=== PATIENT | female | born 1995 | race Caucasian/White ===

== ENCOUNTER 2019-07-12 16:49 | Inpatient (IN) ==
[~2019-07-12 16:49] MED LIST: Methylergonovine 0.2 MG/ML AMPUL IM ONE
[2019-07-12] MEDS ORDERED: Ringers Solution, Lactated 1,000 ML IVC SCH (17:00)
[2019-07-12] MEDS ORDERED: Metoclopramide 10 MG/2 ML VIAL IVP PRN (17:00)
[2019-07-12] MEDS ORDERED: Famotidine 20 MG/2 ML VIAL IVP PRN (17:00)
[2019-07-12] MEDS ORDERED: *HR* Nalbuphine 10 MG/ML AMPUL IVP PRN (17:00)
[2019-07-12] MEDS ORDERED: Naloxone 0.4 MG/ML INJ IVP PRN (17:00)
[2019-07-12] MEDS ORDERED: Acetaminophen 325 MG TABLET PO PRN (17:38)
[2019-07-12] MEDS ORDERED: Penicillin G Potassium 5,000,000 UNIT in 0.9 % Sodium Chloride Mini Bag 100 ML IVPB ONE (17:39)
--- NOTE | 2019-07-12 17:43 | OB/GYN History & Physical ---
Date of Encounter: 07/12/19 Time of Encounter: 17:40 Assessment and Plan (1) 39 weeks gestation of Current visit: Yes Status: Acute admitted for delivery Will start IV antibiotics Patient may have Nubain or epidural when desires History of Present Illness Chief complaint: Labor HPI: Ms. Cervantes is a 24 year old female at 39w5d presents to labor and delivery from the [facility]. Patient reports her water broke at 2230 on 07/11/19. Fluid is now meconium stained fluid. Patient received IM Rocephin per the Contract Design Agent from the [facility]. Patient was brought to labor and delivery due to tachycardia and prolonged rupture of membranes. Blood type: A Negative Rubella: non-immune Hep B: pending GBS: Negative Past Med Surg Social Fam HX - Past Medical History Source: patient Medical history: no medical history Psychiatric history: no psych history - Past Surgical History Surgical History: no surgical history - Social History Smoking Status: Never smoker Smokeless Tobacco Status: No Alcohol use: none Drug use: none - Family History Father Family Member Ethnicity: Non- Living Status: Still Living Hx Family Cardiac Disorders: Yes (hypertension) Obstetrical History - Pregnancies : 1 Para: 0 Term: 0 : 0 Ab's: 0 Livin Medications and Allergies Pnv95/Ferrous Fumarate/FA [ Vitamin Tablet] 1 each PO DAILY 07/12/19 [History] Allergy/AdvReac Type Severity Reaction Status Date / Time No Known Allergies Allergy Verified 07/12/19 17:12 Review of System OB - Constitutional Constitutional ROS IM: no chills, no fever(s), no headache(s) - Cardiovascular Cardiovascular: no chest pain - Respiratory Respiratory: no cough, no dyspnea - Gastrointestinal Gastrointestinal: no constipation, no diarrhea, no heartburn, no nausea, no vomiting - Genitourinary Genitourinary: no abnormal vaginal bleeding, no urinary frequency, no urinary urgency, no vaginal odor, no vaginal pruritis Exam - Vital Signs Vital signs: Initial Vital Signs Temp Pulse Resp BP 99.5 F 104 18 134/79 07/12/19 17:01 07/12/19 17:01 07/12/19 17:01 07/12/19 17:01 - Constitutional Constitutional: well developed, well nourished, average body habitus - HEENT HEENT: Normocephaly, Mucus Membranes Moist - Neck Neck exam: full ROM, supple - Lungs Respiratory exam: CTAB - Cardiovascular Cardiovascular exam: RRR, +S1, +S2 - Abdomen Abdomen: Present: bowel sounds normal, gravid, non tender - Extremities Extremities exam: full ROM, normal inspection Deep Tendon Reflex Grade: 2+ Normal - Cervix Dilation: 7 Effacement: 100 Station: -1 - Uterus Uterus exam: Present: normal size, normal contour - Anus/Rectum Anus/Rectum: Present: normal perianal skin - Comments Comments: FHR 160 bpm moderate variability contractions irregular Results All other labs normal. - VTE Reasons for not Prescribing Prophylaxis: Treatment not Indicated - Low risk for VTE
[2019-07-12 17:49] LABS: Hematocrit 33.5 % (35.3-44.9); Hemoglobin 11.4 g/dL (11.5-15.4); Immature Granulocytes % 0.5 % (0-4); Lymphocytes # 0.5 K/mcL (0.6-4.6); Lymphocytes % 2.8 %; Mean Corpuscular Hemoglobin 29.9 pg (28.0-33.3); Mean Corpuscular Volume 87.9 fL (83.0-100.0); Mean Platelet Volume 11.3 fL (9.4-12.4); Monocytes % 5.8 %; Neutrophils # 14.9 K/mcL (1.6-8.9); Platelet Count 135 K/mcL (140-400); Red Blood Count 3.81 M/mcL (3.82-4.97); Red Cell Distribution Width 14.2 % (11.5-14.5); Segmented Neutrophils % 90.9 %; White Blood Count 16.4 K/mcL (4.3-11.1)
--- NOTE | 2019-07-12 19:55 | Event Note ---
Date of Encounter: 07/12/19 Time of Encounter: 19:53 Called in room to check patient as nursing felt patient was ready to push.. Patient was prepped and draped. Patient did push a couple of times and was unable to bring any descent. On cervical examination there was found to be in anterior lip. Contractions were approximately every 5-6 minutes. Pitocin was started. I had discussion with patient and her as well as her drafter automotive design layout about an epidural for her. They are going to consider a to allow her to relax and let the rest the cervix go away. heart rate in the 160s. Irregular contractions.
--- NOTE | 2019-07-12 22:40 | OB/GYN Procedure Note ---
Delivery - Delivery Date: 07/12/19 Provider: Dara Cortes Intrapartum events: meconium, prolonged labor- > = 20hr Delivery augmentation: pitocin Delivery monitor: external FHT, external uterine Anesthesia: local (for repair) Quantitated Blood Loss: 400 - (s) Infant A Delivery Date: 07/12/19 Infant Delivery Time: 22:02 Presentation: vertex Position: [place] Route of delivery: Gender: Female Viability: Viable Pounds: 8 Ounces: 8 at 1 minute: 2 at 5 mins: 9 Shoulder Dystocia: not encountered Specimens collected: cord blood Placenta: spontaneous, uterine exploration Cord: 3 umbilical vessels - Repair Episiotomy: none Laceration Description: Perineal - 2nd Degree (repaired with 4-0 vicryl ) - Complications Delivery complications: none - Disposition Mom disposition: stable in LDR [place] disposition: stable in LDR - Comments Comments: Called to LDR patient pushing with contractions. tachycardia was noted and Dr. Lemus was aware of EFM tracing. Patient was in lithotomy position with feet in the foot plates. I was gowned and gloved and together with Dr. Menard, PGY 1 delivered a viable female infant. No nuchal cord or shoulder dystocia was encountered. Meconium fluid was noted. was placed on maternal abdomen cord was quickly clamped and cut and was taken to the warmer by nursery staff. A cord segment was cut and cord gases were drawn. Cord blood was also collected. The placenta delivered spontaneously and visually intact. A marginal cord insertion was noted. No odor was noted. A 2nd degree laceration was noted and repaired with 3-0 vicryl. 1% lidocaine was used to anesthetize for repair patient tolerated well. EBL 400cc, apgars 2/9. All counts correct. Pericare provided. Infant was taken to the nursery for further monitoring. Mother stable in LDR for 2 hour recovery.
[2019-07-12] MEDS ORDERED: Oxytocin 20 units/ LR 1000 mL 20 UNIT/1,000 ML BAG IVC ONE (23:17)
[2019-07-13] MEDS ORDERED: Measles/Mumps/Rubella Vacc 0.5 ML VIAL SQ PRN (02:18)
[2019-07-13] MEDS ORDERED: Benzocaine/Menthol 56 GM AEROSOL SPRAY TP PRN (02:18)
[2019-07-13] MEDS ORDERED: Rho Immune Globulin 1,500 UNIT SYRINGE IM PRN (02:18)
[2019-07-13] MEDS ORDERED: Acetaminophen 325 MG TABLET PO PRN (02:18)
[2019-07-13] MEDS ORDERED: Oxytocin 20 units/ LR 1000 mL 20 UNIT/1,000 ML BAG IVC SCH (02:18)
[2019-07-13] MEDS ORDERED: Lanolin 7 G OINT...G. TP PRN (02:18)
[2019-07-13] MEDS ORDERED: *HR* HYDROcodone/Acet 5/325 mg TABLET PO PRN (02:18)
[2019-07-13] MEDS: Ibuprofen 600 MG TABLET PO PRN ×2 (02:54→20:21)
[2019-07-13 06:24] LABS: Basophils % 0.1 %; Hematocrit 28.1 % (35.3-44.9); Lymphocytes # 0.8 K/mcL (0.6-4.6); Lymphocytes % 4.3 %; Mean Corpuscular HGB Conc 34.5 g/dL (31.6-35.5); Mean Corpuscular Hemoglobin 30.4 pg (28.0-33.3); Mean Corpuscular Volume 88.1 fL (83.0-100.0); Mean Platelet Volume 11.6 fL (9.4-12.4); Monocytes # 1.1 K/mcL (0.0-1.3); Monocytes % 6.5 %; Neutrophils # 15.5 K/mcL (1.6-8.9); Platelet Count 143 K/mcL (140-400); Red Blood Count 3.19 M/mcL (3.82-4.97); Red Cell Distribution Width 14.5 % (11.5-14.5); Segmented Neutrophils % 88.1 %; White Blood Count 17.6 K/mcL (4.3-11.1)
[2019-07-13 06:28] LABS: Hemoglobin 9.7 g/dL (11.5-15.4)
[2019-07-13] MEDS: Prenatal Vit/FA 1 EACH TABLET PO SCH (09:29)
--- NOTE | 2019-07-13 12:27 | OB/GYN Progress Note ---
Date of Encounter: 07/13/19 Time of Encounter: 12:25 - Assessment and Plan (1) Vaginal delivery Current Visit: Yes Status: Acute Meeting day 1 milestones however she is dizzy when she ambulates Continue routine care Anticipate discharge home tomorrow (2) Breast feeding status of mother Current Visit: Yes Status: Acute Continue support consult when necessary Subjective - Subjective Interval history: Feeling well. Out of bed without dizziness. Some perineal discomfort-using ice pack. Cramping minimal, using ibuprofen. every 2-3 hours. Some nipple soreness. Voiding without difficulty. Passing flatus, no BM yet. Tolerating regular diet. Patient reports: appetite normal, voiding normally, dizzy ambulation, pain well controlled : doing well, in NICU, nursing well Objective - Latest Vital Signs Latest vital signs: Vital Signs Temp Pulse Pulse Resp BP Pulse Ox 07/13/19 08:58 98.1 F 98 16 112/77 96 07/13/19 03:00 97.7 F 83 16 121/80 96 07/13/19 02:00 98.3 F 84 84 18 122/80 98 07/13/19 01:00 98.6 F 88 16 121/87 100 07/12/19 17:01 99.5 F 104 18 134/79 Intake and Output 07/12/19 07/13/19 07/13/19 23:59 07:59 15:59 Intake Total 480 / 480 Output Total 1300 / 1800 500 / 1800 Balance -1300 / -1320 -20 / -1320 Intake: Oral 480 / 480 Output: Urine 1300 / 1800 500 / 1800 Other: Meal Breakfast Percent of Meal Consumed 100% Weight 84.368 kg - Exam Lungs: bilateral: normal Chest: Normal S1, Normal S2 Extremities: Present: normal Abdomen: Present: normal appearance, soft Uterus: Present: normal, firm Uterus Position: 2 Fingers Below Umbilicus, Midline - Labs Labs: Laboratory Results - last 24 hr 07/12/19 07/12/19 07/13/19 17:33 17:33 05:58 WBC 16.4 H 17.6 H RBC 3.81 L 3.19 L Hgb 11.4 L 9.7 L D Hct 33.5 L 28.1 L MCV 87.9 88.1 MCH 29.9 30.4 MCHC 34.0 34.5 RDW 14.2 14.5 Plt Count 135 L 143 MPV 11.3 11.6 Immature Gran % 0.5 1.0 Seg Neutrophils % 90.9 88.1 Lymphocytes % 2.8 4.3 Monocytes % 5.8 6.5 Eosinophils % 0.0 0.0 Basophils % 0.0 0.1 Neutrophils # 14.9 H 15.5 H Lymphocytes # 0.5 L 0.8 Monocytes # 1.0 1.1 Eosinophils # 0.0 0.0 Basophils # 0.0 0.0 Hep Bs Antigen Nonreactive
[2019-07-14] MEDS: Prenatal Vit/FA 1 EACH TABLET PO SCH (10:11)
--- NOTE | 2019-07-14 11:14 | Discharge Summary ---
Date of Encounter: 07/14/19 Time of Encounter: 11:12 - Discharge Diagnosis (1) Vaginal delivery Priority: Primary Status: Acute Comments: Feeling well Tolerating regular diet Pain well-controlled with by mouth pain meds Ambulating independently Voiding independently Lochia light Passing flatus, no BM yet Vital signs stable Discharge home today (2) Breast feeding status of mother Priority: Secondary Status: Acute Comments: Community resources provided (3) Acute blood loss anemia Priority: Secondary Status: Acute Comments: Continue iron supplementation daily - Discharge Medications Prescriptions: New Ferrous Sulfate 325 mg PO DAILY #30 tablet Acetaminophen [Tylenol] 650 mg PO Q6HR PRN tablet PRN Reason: Mild Pain Ibuprofen [Motrin] 600 mg PO Q6HR PRN #30 tablet PRN Reason: Cramping Benzocaine/Menthol [place] [Dermoplast [place]] 1 appl TP QID PRN aerosol PRN Reason: See Comments Docusate [Colace] 100 mg PO BID #30 capsule Lanolin [Lansinoh] 1 appl TP TID PRN oint...g. PRN Reason: Sore Nipples Continued Pnv95/Ferrous Fumarate/FA [ Vitamin Tablet] 1 each PO DAILY Home Medications: Pnv95/Ferrous Fumarate/FA [ Vitamin Tablet] 1 each PO DAILY 07/12/19 [History] Acetaminophen [Tylenol] 650 mg PO Q6HR PRN tablet 07/14/19 [Rx] Benzocaine/Menthol [place] [Dermoplast [place]] 1 appl TP QID PRN aerosol 07/14/19 [Rx] Docusate [Colace] 100 mg PO BID #30 capsule 07/14/19 [Rx] Ferrous Sulfate 325 mg PO DAILY #30 tablet 07/14/19 [Rx] Ibuprofen [Motrin] 600 mg PO Q6HR PRN #30 tablet 07/14/19 [Rx] Lanolin [Lansinoh] 1 appl TP TID PRN oint...g. 07/14/19 [Rx] Allergies/Adverse Reactions: Allergy/AdvReac Type Severity Reaction Status Date / Time No Known Allergies Allergy Verified 07/12/19 17:12 Data Procedures and tests throughout hospitalization: Laboratory Tests 07/12/19 07/12/19 07/13/19 17:33 17:33 05:58 WBC 16.4 H 17.6 H RBC 3.81 L 3.19 L Hgb 11.4 L 9.7 L D Hct 33.5 L 28.1 L MCV 87.9 88.1 MCH 29.9 30.4 MCHC 34.0 34.5 RDW 14.2 14.5 Plt Count 135 L 143 MPV 11.3 11.6 Immature Gran % 0.5 1.0 Seg Neutrophils % 90.9 88.1 Lymphocytes % 2.8 4.3 Monocytes % 5.8 6.5 Eosinophils % 0.0 0.0 Basophils % 0.0 0.1 Neutrophils # 14.9 H 15.5 H Lymphocytes # 0.5 L 0.8 Monocytes # 1.0 1.1 Eosinophils # 0.0 0.0 Basophils # 0.0 0.0 Hep Bs Antigen Nonreactive Date of admission: 07/12/19 16:49 Primary care physician: PCP NONE Consults: 07/13/19 02:18 Consult to Locker Operator [CONS] Routine Comment: Vaginal delivery, consult needed Discharging clinician: Sandra Hays Anticipated date of discharge: 07/14/19 - Patient Status Disposition: Home, Self-Care Condition: Good Functional capacity at discharge: independent ambulation Overall status at discharge: patient is progressing back to baseline - Discharge Instructions Follow Up With: NONE,PCP [Primary Care Provider] - Dara Cortes CNM [Non-Partnered Physician] - - Diet and Activity Activity: increase activity as tolerated Diet: regular diet Hospital Course Reason for admission: IUP at term, ROM Delivery: Episiotomy: none Laceration: 2nd degree Other procedures: none complications: none Discharge diagnosis: IUP at term delivered baby: female Time Attestation: Total time spent providing and/or coordinating discharge services: Time Spent: Less than 30 minutes Exam - Constitutional Vitals: Temp Pulse Resp BP Pulse Ox 98.3 F 83 14 121/79 99 07/14/19 08:07 07/14/19 08:07 07/14/19 08:07 07/14/19 08:07 07/14/19 08:07 General appearance IM: A&O X 3, obese, answers questions appropriately - Respiratory Respiratory exam: Present: CTAB - Cardiovascular Cardiovascular exam IM: Present: RRR, +S1, +S2 - GI/Abdominal GI/Abdominal exam IM: normal bowel sounds, no peritoneal signs - Rectal Rectal exam: deferred - Uterine Tone: Firm Uterus Position: At Umbilicus, Midline - Extremities Exam Extremities exam IM: Present: full ROM, normal capillary refill, normal inspection, radial pulses palpable and symmetrical - Neurological Exam Neurological exam: alert, CN II-XII intact, normal gait, oriented X3, reflexes normal, no focal deficits, strengths equal and symetr throughout - Psychiatric Additional comments: Patient denies history of anxiety and depression. Signs and symptoms of depression discussed with patient and partner and both verbalized understanding of when to seek help.
[2019-07-14] MEDS: Ibuprofen 600 MG TABLET PO PRN (12:23)
[2019-07-14 21:52] VITALS: BP 115/71
== END 2019-07-14 21:05 | disposition home or self-care (01) | DRG 806 ==
LOC: 1NENULAB 16:49 → 1NENUPED 07-13 03:30 → 1NENUOBS 07-13 21:51
PROVIDERS: ADMIT Advanced Practice Midwife; ATTEND Advanced Practice Midwife